=== PATIENT | male | born 1945 | race Caucasian/White ===

== ENCOUNTER → 2020-05-20 09:53 | Outpatient (CLI) | payer MEDICARE, SELFPAY ==
--- NOTE | 2020-05-20 | DI.RAD.S_ITS ---
PROCEDURE: FL BARIUM SWALLOW W SPEECH INDICATIONS: Other dysphagia COMPARISON: None. TECHNIQUE: Examination was conducted in conjunction with speech pathology per standard protocol. In the lateral projection, filming was performed of the patient swallowing. AP projection filming may also be performed with patient swallowing. COMPARISON: FINDINGS: Function: The oral preparatory phase appears normal, with proper containment. The subsequent oral propulsive phase, pharyngeal phase, and esophageal phase of swallowing also appear normal with all proffered substances. There was mild to moderate residue. Silent flash laryngeal penetration. Morphology: No cricopharyngeal bar is identified. No cervical esophageal webs. No Zenker's diverticulum. No strictures. IMPRESSION: Silent flash laryngeal penetration Dictated by: Jozef Mcmillan M.D. on 05/20/2020 at 13:05 Approved by: Jozef Mcmillan M.D. on 05/20/2020 at 13:05
--- NOTE | 2020-05-20 16:26 | ST.SWALLOW ---
Visit Care Team Role Provider Type Charlotte Coon MD Attending Provider Non-Staff Referring Provider Specialty: General Surgery Address: [address] [place], [address] Email: Modified Barium Swallow Study [employer] Modified Barium Swallow Study Start: 05/20/20 12:07 Freq: Status: Active Protocol: Document 05/20/20 13:33 LNK (Rec: 05/20/20 14:13 LNK [id number]) Modified Barium Swallow Study Total Time Visit Start Time 11:30 Visit Stop Time 12:00 Total Visit Minutes [address]Mary Cristal Coon Reason for Referral dysphagia Setting Setting Outpatient Care Patient Information Identification Type Name,Date of Patient History Pt was seen for a Modified Barium Swallow Study at the referral of Dr. Coon. According to the pt, over the past 4 months, he has been experiencing difficulty swallowing. He feels there is a bubble that causes pain in his chest area (points to mid sternum area). He noted that when he eats, the pain increases and takes a while to dissipate. If he is able to burp, the pain will go away faster. He also noted that he has needed to regurgitate undigested foods at times. Meats are the most difficult to swallow. He reported that he has not experienced choking on liquids or solids. His medical history is positive for a hiatal hernia and GERD. Subjective Observations Pt was seated in the fluoroscopy chair. Procedures and instructions were described for the pt. He indicated that he understood and agreed to proceed. Patient Positioning Position View Lateral Imaging Lateral View Textures Administered Trials Presented Thin Liquid via Spoon,Thin Liquid via Cup,Pudding Thick Liquid via Spoon,Regular Textures Oral Phase Source: MBSIMP (TM) (C) Bolus Specific Scoring Grid Lip Closure WFL Tongue Control During Bolus Hold WFL Bolus Prep/Mastication Minimal Impairment Bolus Transport/Lingual Motion WFL A/P Lingual Propulsion Delay Yes Oral Residue Mild Impairment Residue Clearing Mild Impairment Nasal Regurgitation No Additional Oral Phase Observations OME indicated missing teeth/ molars upper and lower. Diadochokinesis was WNL. ROM, strength and speed of structures WFL Pharyngeal Phase Source: MBSIMP (TM) (C) Bolus Specific Scoring Grid Delayed Initiation of Pharyngeal Swallow No Soft Palate Elevation WFL Tongue Base Strength/Range of Motion Mild Impairment Residue Along the Tongue Base Yes Clearance of Residue Along Tongue Base Mild Impairment Laryngeal Elevation Mild Impairment Anterior Hyoid Movement Mild Impairment Epiglottic Range of Motion Mild Impairment Vallecular Residue Yes: Cleared with spontaneous second swallow Clearance of Vallecular Residue Minimal Impairment Laryngeal Vestibular Closure Mild Impairment Pharyngeal Stripping Wave Mild Impairment Posterior Pharyngeal Wall Residue No Upper Esophageal Sphincter Opening WFL Residue in the Pyriform Sinuses No Esophageal Clearance Upright Position Mild Impairment Pharyngoesophageal Backflow Observed No Additional Pharyngeal Phase Observations Hyolaryngeal elevation was reduced with redcued hyoid movement. this effected the linguapharyngeal contact and the epiglottic inversion. Pooling in the valeculla after swallowing was noted and cleared with spontaneous second swallow. Epiglottic inversion was moderately impaired, allowing flash penetration x4 with larger bolus size/consecutive swallows. No laryngeal residue or aspiration was observed. A/P View Esophageal Observations Esophageal Function Appeared to be WFL (upper esophagus only). Cricopharyngeal bar noted. Clinical Impressions Findings Pt presented with swallowing typical for a person his age. Flash penetration is normal as long as there is not penetration that results in laryngeal residue remaining within the vestibule and/or there is no aspiration. Pt's symptoms may be related to his hiatal hernia or other esophageal dysfunctions related to age. Recommend pt referred to a GI specialist for further assessment. Patient Appropriate for Therapy No Recommendations Treatment Plan Recommended Referrals GI Consult Compensatory Strategies Recommendations Small Bites and Sips,Alternate Liquids/Solids
== END ==
PROVIDERS: Referring Provider Surgery; Visit Provider Surgery
DX: R13.19 Other dysphagia (principal)
CPT/HCPCS: 74230; 92611